=== PATIENT | female | born 1995 | race Caucasian/White ===

== ENCOUNTER 2016-12-10 11:02 | Emergency (ER) | payer MEDICAID ==
[~2016-12-10] VITALS: Ht 165.1 cm; Wt 89.0 kg
[~2016-12-10 11:02] MED LIST: ALBU8.5H5 INH; albuterol neb
[2016-12-10] MEDS ORDERED: ALBUTEROL SULFATE 2.5 MG/3 ML NPPB SCH (12:30)
[2016-12-10 12:35] LABS: BLOOD UREA NITROGEN 13 mg/dL (7-18)
[2016-12-10] MEDS ORDERED: ALBUTEROL/IPRATROPIUM 2.5MG/0.5MG, 3 ML ONE ×2 (13:04)
[2016-12-10] MEDS ORDERED: ALBUTEROL SULFATE 2.5 MG/3 ML ONE ×2 (13:05)
[2016-12-10 14:13] VITALS: BP 133/74
== END 2016-12-10 14:15 | disposition home or self-care (01) ==
LOC: ED 12:16
DX: O99.53 Diseases of the respiratory system complicating the puerperium (principal); J45.21 Mild intermittent asthma with (acute) exacerbation
CPT/HCPCS: 36415; 71010; 80048; 82040; 85025; 93005; 94640

== ENCOUNTER 2017-06-28 19:07 | Emergency (ER) | payer MEDICAID, OTHER ==
[~2017-06-28] VITALS: Ht 165.1 cm; Wt 99.3 kg
[2017-06-28 19:09] VITALS: BP 156/84
== END 2017-06-28 21:35 | disposition home or self-care (01) ==
LOC: ED 21:21
DX: J18.1 Lobar pneumonia, unspecified organism (principal); J45.909 Unspecified asthma, uncomplicated
CPT/HCPCS: 71046; 99284